=== PATIENT | male | born 1980 | race Caucasian/White ===

== ENCOUNTER 2018-11-22 08:01 | Emergency (ER) | payer SELFPAY ==
[2018-11-22] MEDS: DEXAMETHASONE 10 MG/ML 1 ML INJ IM (08:28)
[2018-11-22] MEDS: IPRATROPIUM (NEB) 0.5 MG/2.5 ML AMP HHN (08:38)
[2018-11-22] MEDS: ALBUTEROL 0.083% (NEB) 2.5 MG/3 ML AMP HHN (08:38)
[2018-11-22] MEDS: ACETAMINOPHEN 500 MG TAB PO (09:38)
[2018-11-22] MEDS: predniSONE 20 MG TAB PO (09:38)
[2018-11-22] MEDS: LIDOCAINE 1% (MPF) 5 ML VIAL INJ (09:39)
[2018-11-22] MEDS: CEFTRIAXONE 1 GM INJ IM (09:40)
== END 2018-11-22 09:45 | disposition home or self-care (01) ==
LOC: FTE 08:01
DX: J18.9 Pneumonia, unspecified organism (principal)
CPT/HCPCS: 71045; 94664; 96372; 99284-25